=== PATIENT | female | born 1990 | race Native Hawaiian/Other Pacific Islander ===

== ENCOUNTER → 2018-01-20 10:55 | Outpatient (CLI) | payer OTHER, SELFPAY ==
--- NOTE | 2018-01-20 | DI.US.S_ITS ---
PROCEDURE: US OB <= 14 WEEKS FETUS INDICATIONS: VIABILITY OUTSIDE/PRIOR DATING DATA: Last menstrual period (LMP): Not available. LMP-based estimated date of delivery (BRANDIN): Not available. First dating scan (date and location): This exam. Estimated date of delivery (BRANDIN) from first dating scan: 08/30/2018. TECHNIQUE: Real-time scanning was performed of the fetus and maternal pelvic organs, with image documentation. Endovaginal scanning was also performed to better visualize the fetus and maternal ovaries. COMPARISON: None. FINDINGS: Embryo: There is an intrauterine gestational sac with a pole. Based on the crown-rump length, the estimated gestational age is 8 weeks 2 days. cardiac activity is present. heart rate at 182 BPM. A normal-appearing yolk sac is present. Measurement variability in dating: +/- 4 weeks by LMP, +/- 7 days by mean sac diameter (use before 6 weeks gestation if crown-rump length not able to be measured), +/- 5 days by crown-rump length (up to 8 weeks 6 days gestation), +/- 7 days by crown-rump length (up to 13 weeks 6 days gestation). Maternal organs: Right ovary is not visualized. Left ovary is normal. Limited images through the kidneys demonstrate no hydronephrosis. IMPRESSION: 1. A single living intrauterine gestation with the estimated gestational age of 8 weeks 2 days based on the current ultrasound. Ultrasound BRANDIN 08/30/2018. 2. The right ovary is not visualized. Normal left ovary. Dictated by: Carmine Nieves M.D. on 01/20/2018 at 13:40 Approved by: Carmine Nieves M.D. on 01/20/2018 at 13:44
== END ==
PROVIDERS: PCP Family Medicine; Visit Provider Midwife
DX: Z34.91 Encounter for supervision of normal pregnancy, unspecified, first trimester (principal); Z3A.08 8 weeks gestation of pregnancy
CPT/HCPCS: 76801; 76817

== ENCOUNTER → 2018-04-21 11:57 | Outpatient (CLI) | payer OTHER, SELFPAY ==
--- NOTE | 2018-04-21 | DI.US.S_ITS ---
PROCEDURE: US OB >= 14 WEEKS FETUS INDICATIONS: ANATOMY SCAN OUTSIDE/PRIOR DATING DATA: Last menstrual period (LMP): Unknown. LMP-based estimated date of delivery (BRANDIN): Unknown. First dating scan (date and location): 01/20/18. Estimated date of delivery (BRANDIN) from first dating scan: 08/30/18. TECHNIQUE: Real-time scanning was performed of the fetus, with image documentation and biometric measurements. Endovaginal scanning: Not performed COMPARISON: [facility], OB <= 14 WEEKS FETUS, 01/20/2018, 11:06. FINDINGS: General: A single living intrauterine gestation is present. Presentation: Vertex. Placenta: Placental position is posterior, without previa. Amniotic fluid index: 13.5 cm, normal range is 5-24 cm. heart rate: 155 beats per minute. Maternal cervical canal: 4.4 cm long. Normal lower limit is 2.5 cm. biometrics: Biparietal diameter: 5.0 cm, 21 weeks one day Head circumference: 18.1 cm, 21 weeks 2 days Abdominal circumference: 16.2 cm, 21 weeks 2 days Femur length: 3.5 cm, 21 weeks one day Estimated gestational age from initial scan: 21 weeks 2 days. Composite gestational age from present scan: 21 weeks 2 days Estimated weight and percentile: 408 g, 41st percentile Measurement variability for biometric dating: +/- 7 days from 14 weeks to 15 weeks 6 days gestation, +/- 10 days from 16 weeks to 21 weeks 6 days gestation, +/- 2 weeks from 22 weeks to 27 weeks 6 days gestation, +/- 3 weeks for 28 weeks gestation or later. weight reference: 4500 g or EFW >90/95% is considered macrosomia or large for gestational age. EFW <10% is small for gestational age. EFW 5% or less is considered intra-uterine growth restriction. Anatomic survey: Neuro: Ventricles are non-dilated at less than 10 mm. Cisterna magna is normal at 3-11 mm. Cerebellum is normal in size and morphology. Nuchal skin fold: Normal at less than 6 mm between 14-21 weeks gestational age. Face: Nose and lips, facial profile are normal. Spine: No evidence for spina bifida. Heart: 4-chambered heart is present, with normal ventricular outflow tracts. Diaphragm: Diaphragm is intact. Stomach: Left-sided stomach is present. Kidneys: No hydronephrosis. Normal is less than 5 mm in 2nd trimester, less than 7 mm in 3rd trimester. Cord: 3-vessel cord has orthotopic insertion. Bladder: Normal in size. Extremities: All 4 extremities identified. IMPRESSION: Single living intrauterine fetus in vertex presentation demonstrating expected interval growth as above. Normal anatomic survey. Dictated by: Flako Tidwell M.D. on 04/21/2018 at 15:03 Approved by: Flako Tidwell M.D. on 04/21/2018 at 15:07
== END ==
PROVIDERS: PCP Midwife; Visit Provider Midwife
DX: Z36.89 Encounter for other specified antenatal screening (principal); Z3A.21 21 weeks gestation of pregnancy
CPT/HCPCS: 76811

== ENCOUNTER 2019-01-16 12:30 | Emergency (ER) | payer OTHER, SELFPAY ==
[2019-01-16 12:47] VITALS: BP 121/86; PULSE 86; RESP 18; TEMP 37; O2SAT 100
--- NOTE | 2019-01-16 12:56 | ED.SKABFB ---
HPI - Skin/Abscess/Foreign Bdy <DAKOTA Chavez - Last Filed: 01/16/19 21:15> General Chief complaint: Skin/Abscess/Foreign Body Stated complaint: STAF INFECTION Time Seen by Provider: 01/16/19 12:51 Source: patient Mode of arrival: Ambulatory Limitations: no limitations History of Present Illness HPI narrative: 28-year-old female presents to the emergency department complaining of a rash on the corners of her mouth. She states she developed a staph infection last year at this time and it started the same way. However, she states the rash continued for few weeks and she ended up having to have oral antibiotics and a cream as it spread over her entire face. She states this rash is very similar in would like to start treating it before it becomes worse. She denies any fevers, chills, chest pain, nausea, vomiting, diarrhea, sores in her oral cavity, or other concerns. She is currently breast-feeding at this time. Related Data Previous Rx's Medication Instructions Recorded mupirocin 1 applictn TOP TID #22 gram 01/16/19 Allergies Allergy/AdvReac Type Severity Reaction Status Date / Time No Known Drug Allergies Allergy Verified 01/16/19 12:50 Review of Systems <DAKOTA Chavez - Last Filed: 01/16/19 21:15> Review of Systems Narrative: REVIEW OF SYSTEMS: GENERAL: Denies fever or chills. HENT: Denies head trauma. EYE: Denies double vision or vision loss. CARDIOVASCULAR: Denies syncope. MUSCULOSKELETAL: Denies weakness, or deformities. INTEGUMENTARY: Complains of rash, see HPI. NEURO: Denies numbness or tingling. Patient History <DAKOTA Chavez - Last Filed: 01/16/19 21:15> Family History Father Age: 52 Hypertension High cholesterol Grandfather Cancer Grandfather Heart disease Hypertension High cholesterol Social History Smoking Status: Former smoker alcohol intake frequency: 0-2 drinks per day Substance Use Type: does not use Exam <DAKOTA Chavez - Last Filed: 01/16/19 21:15> Narrative Exam Narrative: PHYSICAL EXAMINATION: GENERAL: Well groomed, alert, and cooperative. Answers questions promptly and appropriately. Vital signs noted. HENT: Normocephalic, atraumatic. RESPIRATORY: Normal respiratory rate, trachea midline, airway patent. No stridor, nasal flaring or accessory muscle use. MUSCULOSKELETAL: Normal gait and coordination. Equal tone and mass bilaterally. EXTREMITIES: CMS intact. Moves all extremities. SKIN: Warm, dry, soft, appropriate color for ethnicity. Small 2cm area of dry peeling skin with noted to both corners of mouth bilaterally with a small amount of scabbing and serosanguineous drainage. No vesicles, no papules, no pustules. No significant erythema to suggest cellulitis. NEURO: Alert and Oriented X 3. Good coordination. PSYCH: Appropriate affect and mood. Initial Vital Signs Initial Vital Signs: Vital Signs Temperature 98.6 F 01/16/19 12:47 Pulse Rate 86 01/16/19 12:47 Respiratory Rate 18 01/16/19 12:47 Blood Pressure 121/86 01/16/19 12:47 Pulse Oximetry 100 01/16/19 12:47 <Kat Mack DO - Last Filed: 01/17/19 07:37> Initial Vital Signs Initial Vital Signs: Vital Signs Temperature 98.6 F 01/16/19 12:47 Pulse Rate 86 01/16/19 12:47 Respiratory Rate 18 01/16/19 12:47 Blood Pressure 121/86 01/16/19 12:47 Pulse Oximetry 100 01/16/19 12:47 Course <DAKOTA Chavez - Last Filed: 01/16/19 21:15> Vital Signs Vital signs: Vital Signs - 8 hr 01/16/19 12:47 Temperature 98.6 F Pulse Rate 86 Respiratory Rate 18 Blood Pressure 121/86 Pulse Oximetry 100 <Kat Mack DO - Last Filed: 01/17/19 07:37> Vital Signs Vital signs: Vital Signs - 8 hr 01/16/19 12:47 Temperature 98.6 F Pulse Rate 86 Respiratory Rate 18 Blood Pressure 121/86 Pulse Oximetry 100 MDM - Skin/Abscess/Foreign Bdy <DAKOTA Chavez - Last Filed: 01/16/19 21:15> Medical Records Attestation: I reviewed the patient's medical records. Lab Data Attestation: I reviewed the patient's lab results. MDM Narrative Medical decision making narrative: I suspect patient's symptoms are most likely caused by impetigo due to presentation of rash in patient's history. Patient was given mupirocin ointment. She was encouraged to monitor the rash closely for any worsening symptoms and return immediately if worsening symptoms occur. Less likely cellulitis due to lack of surrounding erythema, less likely viral such as herpes due to lack of vesicles or crusting. Follow-up instructions discussed. Discharge Plan Departure Patient Disposition: Home Clinical Impression: Impetigo Discharge Date/Time: 01/16/19 13:02 Instructions: DI for Impetigo Activity Restrictions/Additional Instructions: Thank you for entrusting me with your care today. As discussed, your symptoms are most likely caused by a bacterial infection called impetigo. Please apply this cream 3 times daily for 7 days. Follow up with your primary care provider in the next few weeks for re-evaluation. Return to the emergency department if you develop worsening symptoms such as fevers, dizziness, vomiting, chest pain or concerning symptoms. Prescriptions: New mupirocin 2 % ointment 1 applictn TOP TID Qty: 22 RF: 0 Referrals: Rosemarie Werner [Primary Care Provider] -
== END 2019-01-16 13:02 | disposition home or self-care (01) ==
PROVIDERS: Emergency Provider Nurse Practitioner; PCP Midwife
DX: L01.00 Impetigo, unspecified (principal)
CPT/HCPCS: 99282